=== PATIENT | female | born 1975 | race Two or more races ===

== ENCOUNTER 2021-06-21 18:13 | Emergency (ER) | payer SELFPAY ==
[~2021-06-21] VITALS: Ht 162.6 cm; Wt 43.5 kg
[2021-06-21 18:51] VITALS: BP 122/71
== END 2021-06-21 19:50 | disposition left against medical advice (07) ==
LOC: ER 18:16
DX: R11.2 Nausea with vomiting, unspecified (principal); Z53.21 Procedure and treatment not carried out due to patient leaving prior to being seen by health care provider